=== PATIENT | female | born 1995 | race Caucasian/White ===

== ENCOUNTER 2017-08-07 19:35 | Emergency (ER) | payer OTHER ==
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
[2017-08-07] MEDS ORDERED: Rocephin 1000 MG INJ IM ONE (20:54)
[2017-08-07 21:06] LABS: Bacteria Rare; Clue Cells None Seen
[2017-08-07 21:07] LABS: Red Blood Cells Rare; Trichomonas None Seen; White Blood Cells Few
[2017-08-07] MEDS ORDERED: Rocephin 1000 MG INJ ONE (21:07)
[2017-08-07] MEDS ORDERED: XYLOCAINE 1% HCL 20 ML MDV ONE (21:08)
[2017-08-07 21:58] VITALS: BP 112/73; PULSE 80; O2SAT 99
[2017-08-09 09:36] LABS: Hepatitis B Surface Ab.Quant <3.50 mIU/mL (0.00-8.49); Hepatitis C Antibody by EIA Non Reactive (Non Reactive)
[2017-08-09 09:37] LABS: Hepatitis B Sur Ag Screen Non Reactive (Non Reactive)
[2017-08-09 13:08] LABS: HIV Antigen/Antibody Combo Non Reactive (Non Reactive)
== END 2017-08-07 21:58 | disposition home or self-care (01) ==
LOC: ED 19:35
DX: Z72.51 High risk heterosexual behavior (principal); N89.8 Other specified noninflammatory disorders of vagina; F17.200 Nicotine dependence, unspecified, uncomplicated
CPT/HCPCS: 36415; 86317; 86592; 86701; 86702; 86803; 87210; 87340; 87389; 87490; 87590; 96372; 99284; J0696

== ENCOUNTER 2024-01-04 02:09 | Observation (INO) | payer MEDICAID ==
[2024-01-04 04:36] VITALS: TEMP 97.7; O2SAT 96
[2024-01-04 05:16] LABS: Amphetamine,Urine NEGATIVE (NEGATIVE); Barbiturate,Urine NEGATIVE (NEGATIVE); Benzodiazepine,Urine NEGATIVE (NEGATIVE); Cocaine,Urine NEGATIVE (NEGATIVE); Methadone,Urine NEGATIVE (NEGATIVE); Opiate,Urine NEGATIVE (NEGATIVE); PCP,Urine NEGATIVE (NEGATIVE); THC,Urine NEGATIVE (NEGATIVE)
[2024-01-04 06:21] LABS: ABO TYPING O; Antibody Screen NEGATIVE (NEGATIVE); RH TYPING POSITIVE
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
[2024-01-04 10:39] VITALS: BP 112/58; PULSE 85; RESP 16
== END 2024-01-04 10:43 | disposition home or self-care (01) ==
LOC: OB 02:09
PROVIDERS: ADMIT Obstetrics & Gynecology; ATTEND Obstetrics & Gynecology
DX: Z34.83 Encounter for supervision of other normal pregnancy, third trimester (principal); Z3A.34 34 weeks gestation of pregnancy
CPT/HCPCS: 36415; 76805; 80307; 86850; 86900; 86901; G0378; G0379

== ENCOUNTER 2025-05-07 17:06 | Inpatient (IN) | payer OTHER ==
[2025-05-07] MEDS ORDERED: Zofran 4 MG/2 ML VIAL IV PRN (17:26)
[2025-05-07] MEDS ORDERED: Lactated Ringers 1,000 ML IV SCH (17:30)
[2025-05-07 17:52] LABS: BASOPHIL % 0.1 % (0.1-1.2); Basophil (Absolute #) 0.01 x10^3/uL (0.01-0.08); Eosinophil (Absolute #) 0.04 x10^3/uL (0.04-0.36); Hematocrit 33.7 % (34.1-44.9); Hemoglobin 10.8 g/dL (11.2-15.7); IMMATURE GRAN # 0.03 x10^3u/L (0.001-0.031); IMMATURE GRAN % 0.4 % (0.001-0.429); Lymphocyte (Absolute #) 0.97 x10^3/uL (1.18-3.74); Mean Corpuscular Hemoglobin 28.7 pg (25.6-32.2); Mean Corpuscular Hgb Concent. 32.0 g/dL (32.2-35.5); Monocyte (Absolute #) 0.74 x10^3/uL (0.24-0.86); NUCLEATED RBC # 0.00 x10^3u/L (0.00-0.012); NUCLEATED RBC % 0.0 % (0.00-0.2); Platelet Count 162 x10^3/uL (182-369); Red Blood Count 3.76 x10^6/uL (3.93-5.22); White Blood Count 8.6 x10^3/uL (3.98-10.04)
[2025-05-07] MEDS: FENTANYL 2 MCG-BUPIV 0.125%-NS 250 ML Epidur 250 ML EPIDURAL SCH (18:06)
[2025-05-07] MEDS: PITOCIN 30 UNITS/ LR 500 ML 30 UNITS/500 ML PLAST..BAG IV SCH (18:07)
[2025-05-07] MEDS: Lactated Ringers 1,000 ML IV ONE (18:07)
[2025-05-07 18:18] LABS: AMNISURE TEST RESULTS POSITIVE (NEGATIVE)
[2025-05-07] MEDS ORDERED: XYLOCAINE 1% HCL 20 ML MDV ONE (18:19)
[2025-05-07 18:20] LABS: Hematocrit 33.4 % (34.1-44.9); Hemoglobin 10.7 g/dL (11.2-15.7); Mean Corpuscular Hemoglobin 28.5 pg (25.6-32.2); Mean Corpuscular Hgb Concent. 32.0 g/dL (32.2-35.5); Platelet Count 156 x10^3/uL (182-369); Red Blood Count 3.75 x10^6/uL (3.93-5.22); White Blood Count 8.6 x10^3/uL (3.98-10.04)
[2025-05-07] MEDS ORDERED: Dermoplast Spray ONE (18:37)
[2025-05-07] MEDS ORDERED: TUCKS TP ONE (18:37)
[2025-05-07 18:39] LABS: ABO TYPING O; RH TYPING POSITIVE
[2025-05-07] MEDS ORDERED: Mylicon 80MG PO PRN (18:40)
[2025-05-07] MEDS: Dermoplast Spray TP PRN (18:44)
[2025-05-07] MEDS: TUCKS TP PRN (18:46)
[2025-05-07] MEDS: TYLENOL EXTRA STRENGTH 500 MG PO PRN (19:01)
[2025-05-07] MEDS: MOTRIN 400 MG PO PRN (20:23)
[2025-05-07 21:27] LABS: Amphetamine,Urine NEGATIVE (NEGATIVE); Barbiturate,Urine NEGATIVE (NEGATIVE); Benzodiazepine,Urine NEGATIVE (NEGATIVE); Cocaine,Urine NEGATIVE (NEGATIVE); Methadone,Urine NEGATIVE (NEGATIVE); Opiate,Urine NEGATIVE (NEGATIVE); PCP,Urine NEGATIVE (NEGATIVE); THC,Urine NEGATIVE (NEGATIVE)
[2025-05-08] MEDS: Docusate Sodium 100 MG PO SCH (00:15)
[2025-05-08] MEDS: LANSINOH 40 GM TOP PRN (00:18)
[2025-05-08 05:06] LABS: BASOPHIL % 0.0 % (0.1-1.2); Basophil (Absolute #) 0 x10^3/uL (0.01-0.08); Eosinophil (Absolute #) 0.03 x10^3/uL (0.04-0.36); Hematocrit 28.7 % (34.1-44.9); Hemoglobin 9.1 g/dL (11.2-15.7); IMMATURE GRAN # 0.02 x10^3u/L (0.001-0.031); IMMATURE GRAN % 0.3 % (0.001-0.429); Lymphocyte (Absolute #) 1.10 x10^3/uL (1.18-3.74); Mean Corpuscular Hemoglobin 28.7 pg (25.6-32.2); Mean Corpuscular Hgb Concent. 31.7 g/dL (32.2-35.5); Monocyte (Absolute #) 0.76 x10^3/uL (0.24-0.86); NUCLEATED RBC # 0.00 x10^3u/L (0.00-0.012); NUCLEATED RBC % 0.0 % (0.00-0.2); Platelet Count 143 x10^3/uL (182-369); Red Blood Count 3.17 x10^6/uL (3.93-5.22); White Blood Count 6.6 x10^3/uL (3.98-10.04)
--- NOTE | 2025-05-08 07:56 | PCM.DS ---
Discharge Summary Date of Admission: 05/07/25 17:06 Admitting Physician: MARLY PRESTON DO Primary Care Provider: BRENNAN YOUNG Allergies Allergies No Known Drug Allergies Allergy (Unverified 06/07/14 06:00) Hospital Summary - Vitals & Intake/Output Vital Signs: Vital Signs Temperature 98.0 F 05/08/25 00:38 Pulse Rate 82 05/08/25 00:38 Respiratory Rate 18 05/08/25 00:38 Blood Pressure 108/60 05/08/25 00:38 O2 Sat by Pulse Oximetry 97 05/08/25 00:38 Intake & Output: Intake & Output 05/05/25 05/06/25 05/07/25 05/08/25 11:59 11:59 11:59 11:59 Output Total 100 Balance -100 Weight 91.626 kg - Lab Result Diagrams: 05/08/25 05:00 Lab Results-Last 24 Hrs: Lab Results-Last 24 Hours 05/07/25 05/07/25 05/07/25 Range/Units 17:39 17:39 17:45 WBC 8.6 (3.98-10.04) x10^3/uL RBC 3.76 L (3.93-5.22) x10^6/uL Hgb 10.8 L (11.2-15.7) g/dL Hct 33.7 L (34.1-44.9) % MCV 89.6 (79.4-94.8) fL MCH 28.7 (25.6-32.2) pg MCHC 32.0 L (32.2-35.5) g/dL RDW 13.6 (11.7-14.4) % Plt Count 162 L (182-369) x10^3/uL MPV 11.5 (9.4-12.3) fL Gran % 79.1 H (34.0-71.1) % Immature Gran % (Auto) 0.4 (0.001-0.429) % Nucleat RBC Rel Count 0.0 (0.00-0.2) % Eos # (Auto) 0.04 (0.04-0.36) x10^3/uL Immature Gran # (Auto) 0.03 (0.001-0.031) x10^3u/L Absolute Lymphs (auto) 0.97 L (1.18-3.74) x10^3/uL Absolute Monos (auto) 0.74 (0.24-0.86) x10^3/uL Absolute Nucleated RBC 0.00 (0.00-0.012) x10^3u/L Lymphocytes % 11.3 L (19.3-51.7) % Monocytes % 8.6 (4.7-12.5) % Eosinophils % 0.5 L (0.7-5.8) % Basophils % 0.1 (0.1-1.2) % Absolute Granulocytes 6.77 H (1.56-6.13) x10^3/uL Basophils # 0.01 (0.01-0.08) x10^3/uL Amnio Swab Test POSITIVE A (NEGATIVE) Urine Opiates Level (NEGATIVE) Ur Methadone (NEGATIVE) Urine Barbiturates (NEGATIVE) Ur Phencyclidine (PCP) (NEGATIVE) Urine Amphetamine (NEGATIVE) U Benzodiazepine Level (NEGATIVE) Urine Cocaine (NEGATIVE) Urine Marijuana (THC) (NEGATIVE) ABO Group O Rh Factor POSITIVE Antibody Screen NEGATIVE (NEGATIVE) 05/07/25 05/07/25 05/08/25 Range/Units 18:00 20:40 05:00 WBC 8.6 6.6 (3.98-10.04) x10^3/uL RBC 3.75 L 3.17 L (3.93-5.22) x10^6/uL Hgb 10.7 L 9.1 L (11.2-15.7) g/dL Hct 33.4 L 28.7 L (34.1-44.9) % MCV 89.1 90.5 (79.4-94.8) fL MCH 28.5 28.7 (25.6-32.2) pg MCHC 32.0 L 31.7 L (32.2-35.5) g/dL RDW 13.5 13.7 (11.7-14.4) % Plt Count 156 L 143 L (182-369) x10^3/uL MPV 11.9 11.6 (9.4-12.3) fL Gran % 70.8 (34.0-71.1) % Immature Gran % (Auto) 0.3 (0.001-0.429) % Nucleat RBC Rel Count 0.0 (0.00-0.2) % Eos # (Auto) 0.03 L (0.04-0.36) x10^3/uL Immature Gran # (Auto) 0.02 (0.001-0.031) x10^3u/L Absolute Lymphs (auto) 1.10 L (1.18-3.74) x10^3/uL Absolute Monos (auto) 0.76 (0.24-0.86) x10^3/uL Absolute Nucleated RBC 0.00 (0.00-0.012) x10^3u/L Lymphocytes % 16.8 L (19.3-51.7) % Monocytes % 11.6 (4.7-12.5) % Eosinophils % 0.5 L (0.7-5.8) % Basophils % 0.0 L (0.1-1.2) % Absolute Granulocytes 4.64 (1.56-6.13) x10^3/uL Basophils # 0 L (0.01-0.08) x10^3/uL Amnio Swab Test (NEGATIVE) Urine Opiates Level NEGATIVE (NEGATIVE) Ur Methadone NEGATIVE (NEGATIVE) Urine Barbiturates NEGATIVE (NEGATIVE) Ur Phencyclidine (PCP) NEGATIVE (NEGATIVE) Urine Amphetamine NEGATIVE (NEGATIVE) U Benzodiazepine Level NEGATIVE (NEGATIVE) Urine Cocaine NEGATIVE (NEGATIVE) Urine Marijuana (THC) NEGATIVE (NEGATIVE) ABO Group Rh Factor Antibody Screen (NEGATIVE) Final Diagnosis/Problem List - Final Discharge Diagnosis/Problem (1) Vaginal delivery Current Visit: Yes Status: Acute Code(s): O80 - ENCOUNTER FOR FULL-TERM UNCOMPLICATED DELIVERY - Discharge Disposition: Home, Self-Care Condition: Stable Prescriptions: No Action Pnv 119/Iron Fum/Folic Acid [ 19 Tablet] 1 tab PO DAILY Follow up with: BRENNAN YOUNG [Primary Care Provider, INTERNAL MEDICINE]
--- NOTE | 2025-05-08 07:56 | PCM.NOTE ---
Date and Time: 05/08/25 0755 Subjective Assessment: ppd 1 sp pt resting in bed and doing well without complaints vss afebrile abd; soft uterus; firm lochia; mild hgb; 9.1 a/p sp ppd 1 dc home tomorrow should fu office in 3 wks Objective Data Vital Signs: Vital Signs - 24 hr Temp Pulse Resp BP BP Pulse Ox 05/08/25 00:38 98.0 F 82 18 108/60 97 05/07/25 20:30 65 18 112/58 05/07/25 20:27 98.2 F 65 18 115/58 98 05/07/25 20:15 74 18 108/58 05/07/25 20:00 98.2 F 79 18 104/59 05/07/25 19:45 85 18 104/59 05/07/25 19:30 74 18 107/58 98 05/07/25 19:15 80 18 118/58 100 05/07/25 19:00 98.0 F 78 18 122/62 100 05/07/25 18:45 98.9 F 80 20 116/57 100 05/07/25 18:20 98.1 F 20 05/07/25 18:00 98.1 F 89 20 100/56 97 05/07/25 17:36 98.1 F 100 H 20 122/73 05/07/25 17:30 98.1 F 100 H 20 122/73 97 05/07/25 17:15 98.1 F 100 H 18 122/73 97 Pain Assessment - Last Documented Pain Intensity [Lower Anterior 5 ] Pain Intensity 3 Pain Scale Used 0-10 Pain Scale Intake and Output: Intake & Output 05/05/25 05/06/25 05/07/25 05/08/25 11:59 11:59 11:59 11:59 Output Total 100 Balance -100 Weight 91.626 kg Lab Results: Lab Results-Last 24 Hours 05/07/25 05/07/25 05/07/25 Range/Units 17:39 17:39 17:45 WBC 8.6 (3.98-10.04) x10^3/uL RBC 3.76 L (3.93-5.22) x10^6/uL Hgb 10.8 L (11.2-15.7) g/dL Hct 33.7 L (34.1-44.9) % MCV 89.6 (79.4-94.8) fL MCH 28.7 (25.6-32.2) pg MCHC 32.0 L (32.2-35.5) g/dL RDW 13.6 (11.7-14.4) % Plt Count 162 L (182-369) x10^3/uL MPV 11.5 (9.4-12.3) fL Gran % 79.1 H (34.0-71.1) % Immature Gran % (Auto) 0.4 (0.001-0.429) % Nucleat RBC Rel Count 0.0 (0.00-0.2) % Eos # (Auto) 0.04 (0.04-0.36) x10^3/uL Immature Gran # (Auto) 0.03 (0.001-0.031) x10^3u/L Absolute Lymphs (auto) 0.97 L (1.18-3.74) x10^3/uL Absolute Monos (auto) 0.74 (0.24-0.86) x10^3/uL Absolute Nucleated RBC 0.00 (0.00-0.012) x10^3u/L Lymphocytes % 11.3 L (19.3-51.7) % Monocytes % 8.6 (4.7-12.5) % Eosinophils % 0.5 L (0.7-5.8) % Basophils % 0.1 (0.1-1.2) % Absolute Granulocytes 6.77 H (1.56-6.13) x10^3/uL Basophils # 0.01 (0.01-0.08) x10^3/uL Amnio Swab Test POSITIVE A (NEGATIVE) Urine Opiates Level (NEGATIVE) Ur Methadone (NEGATIVE) Urine Barbiturates (NEGATIVE) Ur Phencyclidine (PCP) (NEGATIVE) Urine Amphetamine (NEGATIVE) U Benzodiazepine Level (NEGATIVE) Urine Cocaine (NEGATIVE) Urine Marijuana (THC) (NEGATIVE) ABO Group O Rh Factor POSITIVE Antibody Screen NEGATIVE (NEGATIVE) 05/07/25 05/07/25 05/08/25 Range/Units 18:00 20:40 05:00 WBC 8.6 6.6 (3.98-10.04) x10^3/uL RBC 3.75 L 3.17 L (3.93-5.22) x10^6/uL Hgb 10.7 L 9.1 L (11.2-15.7) g/dL Hct 33.4 L 28.7 L (34.1-44.9) % MCV 89.1 90.5 (79.4-94.8) fL MCH 28.5 28.7 (25.6-32.2) pg MCHC 32.0 L 31.7 L (32.2-35.5) g/dL RDW 13.5 13.7 (11.7-14.4) % Plt Count 156 L 143 L (182-369) x10^3/uL MPV 11.9 11.6 (9.4-12.3) fL Gran % 70.8 (34.0-71.1) % Immature Gran % (Auto) 0.3 (0.001-0.429) % Nucleat RBC Rel Count 0.0 (0.00-0.2) % Eos # (Auto) 0.03 L (0.04-0.36) x10^3/uL Immature Gran # (Auto) 0.02 (0.001-0.031) x10^3u/L Absolute Lymphs (auto) 1.10 L (1.18-3.74) x10^3/uL Absolute Monos (auto) 0.76 (0.24-0.86) x10^3/uL Absolute Nucleated RBC 0.00 (0.00-0.012) x10^3u/L Lymphocytes % 16.8 L (19.3-51.7) % Monocytes % 11.6 (4.7-12.5) % Eosinophils % 0.5 L (0.7-5.8) % Basophils % 0.0 L (0.1-1.2) % Absolute Granulocytes 4.64 (1.56-6.13) x10^3/uL Basophils # 0 L (0.01-0.08) x10^3/uL Amnio Swab Test (NEGATIVE) Urine Opiates Level NEGATIVE (NEGATIVE) Ur Methadone NEGATIVE (NEGATIVE) Urine Barbiturates NEGATIVE (NEGATIVE) Ur Phencyclidine (PCP) NEGATIVE (NEGATIVE) Urine Amphetamine NEGATIVE (NEGATIVE) U Benzodiazepine Level NEGATIVE (NEGATIVE) Urine Cocaine NEGATIVE (NEGATIVE) Urine Marijuana (THC) NEGATIVE (NEGATIVE) ABO Group Rh Factor Antibody Screen (NEGATIVE) Medications: Medications Generic Name Dose Route Start Last Admin Trade Name Freq PRN Reason Stop Dose Admin Acetaminophen 500 - 1,000 mg 05/07/25 18:40 05/08/25 00:18 Acetaminophen 500 Mg Tablet PO 06/06/25 18:39 1,000 mg Q4H PRN PRN Administration MILD PAIN Benzocaine 0 gm 05/07/25 18:40 05/07/25 18:44 Benzocaine/Lanolin/Aloe Vera 85 Gm Can TP 06/06/25 18:39 85 gm UD PRN Administration PAIN Docusate Sodium 100 mg 05/07/25 22:00 05/08/25 00:15 Docusate Sodium 100 Mg Capsule PO 06/06/25 21:59 Not Given BID BAKARI Emollient Ointment 0 gm 05/07/25 18:40 05/08/25 00:18 Lansinoh 40 Gm Tube TOP 06/06/25 18:39 40 gm PRN PRN Administration PAIN Oxytocin/Lactated Ringer's 30 units in 500 mls @ 5 mls/hr 05/07/25 17:30 05/07/25 18:07 Pitocin 30 Units/ Lr 500 Ml IV 06/06/25 17:29 5 mls/hr .Q24H BAKARI Administration Lactated Ringer's 1,000 mls @ 125 mls/hr 05/07/25 17:30 Lactated Ringers IV 06/06/25 17:29 .Q8H BAKARI FENTANYL/BUPIVACAINE/NS/PF 250 mls @ 0 mls/hr 05/07/25 18:00 05/07/25 18:06 Fentanyl 2 Mcg-Bupiv 0.125%-Ns 250 Ml Epidur EPIDURAL 06/06/25 17:59 200 mls/hr .Q0M BAKARI Administration Protocol Titrate Ibuprofen 800 mg 05/07/25 18:40 05/08/25 07:42 Ibuprofen 400 Mg Tablet PO 06/06/25 18:39 800 mg Q6H PRN PRN Administration MODERATE PAIN Ondansetron HCl 4 mg 05/07/25 17:26 Ondansetron Hcl 4 Mg/2 Ml Vial IV 06/06/25 17:25 Q4H PRN PRN NAUSEA/VOMITING Polysaccharide Iron Complex 150 mg 05/08/25 10:00 Iron Polysaccharides Complex 150 Mg Capsule PO 06/07/25 09:59 DAILY BAKARI Simethicone 80 mg 05/07/25 18:40 Simethicone 80 Mg Tab.Chew PO 06/06/25 18:39 QID PRN PRN INDIGESTION Milagro Michelle 1 pad 05/07/25 18:40 05/07/25 18:46 Milagro Michelle 1 Pad Med..Pad TP 06/06/25 18:39 1 pad PRN PRN Administration ITCHING Discontinued Medications Generic Name Dose Route Start Last Admin Trade Name Freq PRN Reason Stop Dose Admin Benzocaine Confirm 05/07/25 18:37 Benzocaine/Lanolin/Aloe Vera 85 Gm Can Administered 05/07/25 18:38 Dose 85 gm .ROUTE .STK-MED ONE Lactated Ringer's 1,000 mls @ 999 mls/hr 05/07/25 17:58 05/07/25 18:07 Lactated Ringers IV 05/07/25 18:58 999 mls/hr .Q1H1M ONE Administration Lidocaine HCl Confirm 05/07/25 18:19 Lidocaine Hcl 1% 20 Ml Mdv 20 Ml Ml Administered 05/07/25 18:20 Dose 1 ml .ROUTE .STK-MED ONE Milagro Michelle Confirm 05/07/25 18:37 Milagro Michelle 1 Pad Med..Pad Administered 05/07/25 18:38 Dose 1 pad TP .STK-MED ONE Assessment/Plan (1) Vaginal delivery Current Visit: Yes Status: Acute Code(s): O80 - ENCOUNTER FOR FULL-TERM UNCOMPLICATED DELIVERY
--- NOTE | 2025-05-08 08:54 | PCM.HP ---
History of Present Illness - Chief Complaint Chief Complaint: Labor History of Present Illness: is a 29 year old female IUP 38 WKS WITH HX OF PREVIOUS 2 VAGINAL DELIVERY PRESENTED WITH SROM AT 1600 WITH NO VAGINAL BLEEDING AND STATES GOOD MOVEMENT. STATES NO MEDICAL ISSUE WITH CURRENT AND SEES PROVIDER IN [facility] CARE - Review of Systems Ears, Nose, & Throat: No Symptoms Respiratory: No Symptoms Cardiac: No Symptoms Genitourinary Symptoms: Other (4-5/100/-2) Musculoskeletal: No Symptoms Neurological: No Symptoms Psychological: No Symptoms Additional Findings: CONTRACTIONS EVERY 3 MINUTES Medications & Allergies Home Medications: Home Medication List Pnv 119/Iron Fum/Folic Acid [ 19 Tablet] 1 tab PO DAILY 01/04/24 [History Confirmed 01/04/24] Allergies/Adverse Reactions: Allergies Allergy/AdvReac Type Severity Reaction Status Date / Time No Known Drug Allergies Allergy Unverified 06/07/14 06:00 - Past Medical History Past Medical History: No Neurological History: No Pertinent History ENT History: No Pertinent History Cardiac History: No Pertinent History Respiratory History: No Pertinent History Endocrine Medical History: No Pertinent History Musculoskelatal History: Fibromyalgia, Fractures GI Medical History: No Pertinent History History: No Pertinent History Pyscho-Social History: No Pertinent History Reproductive Disorders: No Pertinent History Comment: hx of eye socket surgery d/t surgery - Female History Expected Date of Delivery: 05/23/25 - Past Surgical History Past Surgical History: No Neuro Surgical History: No Pertinent History Cardiac History: No Pertinent History Respiratory Surgery: No Pertinent History GI Surgical History: No Pertinent History Genitourinary Surgical Hx: No Pertinent History Musculskeletal Surgical Hx: No Pertinent History Female Surgical History: No Pertinent History Other Surgical History: eye socket broke - Social History Smoking Status: Former smoker Exposure to second hand smoke: No Alcohol: None Drug Use: none - Social Determinants of Health Will the patient participate in the screening: Yes Do you worry about a steady place to live?: No Do you have any problems with any of the following?: No known problems In the past 12 months,have you had to go without utilities?: No Have you or anyone in your house had to go without enough: No Transportation Issues: No Has anyone in your support network made you feel unsafe?: No Does the patient want assistance with any of the above?: No - Physical Exam Vital Signs: Vital Signs - 24 hr Temp Pulse Resp BP BP Pulse Ox 05/08/25 08:27 98.0 F 70 20 117/67 05/08/25 00:38 98.0 F 82 18 108/60 97 05/07/25 20:30 65 18 112/58 05/07/25 20:27 98.2 F 65 18 115/58 98 05/07/25 20:15 74 18 108/58 05/07/25 20:00 98.2 F 79 18 104/59 05/07/25 19:45 85 18 104/59 05/07/25 19:30 74 18 107/58 98 05/07/25 19:15 80 18 118/58 100 05/07/25 19:00 98.0 F 78 18 122/62 100 05/07/25 18:45 98.9 F 80 20 116/57 100 05/07/25 18:20 98.1 F 20 05/07/25 18:00 98.1 F 89 20 100/56 97 05/07/25 17:36 98.1 F 100 H 20 122/73 05/07/25 17:30 98.1 F 100 H 20 122/73 97 05/07/25 17:15 98.1 F 100 H 18 122/73 97 Pelvic Exam: other (4-5/100/-2/SROM) Results - Labs Lab/Micro Results: Lab Results-Last 24 Hours 05/07/25 05/07/25 05/07/25 Range/Units 17:39 17:39 17:45 WBC 8.6 (3.98-10.04) x10^3/uL RBC 3.76 L (3.93-5.22) x10^6/uL Hgb 10.8 L (11.2-15.7) g/dL Hct 33.7 L (34.1-44.9) % MCV 89.6 (79.4-94.8) fL MCH 28.7 (25.6-32.2) pg MCHC 32.0 L (32.2-35.5) g/dL RDW 13.6 (11.7-14.4) % Plt Count 162 L (182-369) x10^3/uL MPV 11.5 (9.4-12.3) fL Gran % 79.1 H (34.0-71.1) % Immature Gran % (Auto) 0.4 (0.001-0.429) % Nucleat RBC Rel Count 0.0 (0.00-0.2) % Eos # (Auto) 0.04 (0.04-0.36) x10^3/uL Immature Gran # (Auto) 0.03 (0.001-0.031) x10^3u/L Absolute Lymphs (auto) 0.97 L (1.18-3.74) x10^3/uL Absolute Monos (auto) 0.74 (0.24-0.86) x10^3/uL Absolute Nucleated RBC 0.00 (0.00-0.012) x10^3u/L Lymphocytes % 11.3 L (19.3-51.7) % Monocytes % 8.6 (4.7-12.5) % Eosinophils % 0.5 L (0.7-5.8) % Basophils % 0.1 (0.1-1.2) % Absolute Granulocytes 6.77 H (1.56-6.13) x10^3/uL Basophils # 0.01 (0.01-0.08) x10^3/uL Amnio Swab Test POSITIVE A (NEGATIVE) Urine Opiates Level (NEGATIVE) Ur Methadone (NEGATIVE) Urine Barbiturates (NEGATIVE) Ur Phencyclidine (PCP) (NEGATIVE) Urine Amphetamine (NEGATIVE) U Benzodiazepine Level (NEGATIVE) Urine Cocaine (NEGATIVE) Urine Marijuana (THC) (NEGATIVE) ABO Group O Rh Factor POSITIVE Antibody Screen NEGATIVE (NEGATIVE) 05/07/25 05/07/25 05/08/25 Range/Units 18:00 20:40 05:00 WBC 8.6 6.6 (3.98-10.04) x10^3/uL RBC 3.75 L 3.17 L (3.93-5.22) x10^6/uL Hgb 10.7 L 9.1 L (11.2-15.7) g/dL Hct 33.4 L 28.7 L (34.1-44.9) % MCV 89.1 90.5 (79.4-94.8) fL MCH 28.5 28.7 (25.6-32.2) pg MCHC 32.0 L 31.7 L (32.2-35.5) g/dL RDW 13.5 13.7 (11.7-14.4) % Plt Count 156 L 143 L (182-369) x10^3/uL MPV 11.9 11.6 (9.4-12.3) fL Gran % 70.8 (34.0-71.1) % Immature Gran % (Auto) 0.3 (0.001-0.429) % Nucleat RBC Rel Count 0.0 (0.00-0.2) % Eos # (Auto) 0.03 L (0.04-0.36) x10^3/uL Immature Gran # (Auto) 0.02 (0.001-0.031) x10^3u/L Absolute Lymphs (auto) 1.10 L (1.18-3.74) x10^3/uL Absolute Monos (auto) 0.76 (0.24-0.86) x10^3/uL Absolute Nucleated RBC 0.00 (0.00-0.012) x10^3u/L Lymphocytes % 16.8 L (19.3-51.7) % Monocytes % 11.6 (4.7-12.5) % Eosinophils % 0.5 L (0.7-5.8) % Basophils % 0.0 L (0.1-1.2) % Absolute Granulocytes 4.64 (1.56-6.13) x10^3/uL Basophils # 0 L (0.01-0.08) x10^3/uL Amnio Swab Test (NEGATIVE) Urine Opiates Level NEGATIVE (NEGATIVE) Ur Methadone NEGATIVE (NEGATIVE) Urine Barbiturates NEGATIVE (NEGATIVE) Ur Phencyclidine (PCP) NEGATIVE (NEGATIVE) Urine Amphetamine NEGATIVE (NEGATIVE) U Benzodiazepine Level NEGATIVE (NEGATIVE) Urine Cocaine NEGATIVE (NEGATIVE) Urine Marijuana (THC) NEGATIVE (NEGATIVE) ABO Group Rh Factor Antibody Screen (NEGATIVE) Assessment/Plan (1) Vaginal delivery Current Visit: Yes Status: Acute Code(s): O80 - ENCOUNTER FOR FULL-TERM UNCOMPLICATED DELIVERY (2) Labor abnormal Current Visit: Yes Status: Acute Code(s): O62.9 - ABNORMALITY OF FORCES OF LAB[employer], UNSPECIFIED
--- NOTE | 2025-05-08 08:57 | PCM.DS ---
Discharge Summary Date of Admission: 05/07/25 17:06 Admitting Physician: MARLY PRESTON DO Primary Care Provider: BRENNAN YOUNG Allergies Allergies No Known Drug Allergies Allergy (Unverified 06/07/14 06:00) Hospital Summary - Hospital Course Hospital Course: PT ADMITTED ON MAY 07 AT 38 WKS GESTATION WITH HX OF PREVIOUS 2 VAGINAL DELIVERY PRESENTED IN LABOR ODELL EVERY 3 MINUTES WITH SROM AT 1600. DENIES VAGINAL BLEEDING AND STATES GOOD MOVEMENT. PT DID NOT HAVE TIME RECEIVING EPIDURAL AND SUBSEQUENTLY DELIVERED LIVE BABY BOY WITHOUT COMPLICATION WITH 2ND DEGREE TEAR REPAIRED WITH 2-0 CHROMIC SUTURE. DURING PERIOD DID WELL WITH STABLE VITAL SIGNS AND HGB STABLE AT 9.1. PT AT THIS TIME STABLE FOR DISCHARGE ON MAY 09 AND WAS ADVISED TO FU IN OFFICE IN 3WKS. ALL QUESTIONS ANSWERED TO HER SATISFACTION AND AT THIS TIME STABLE FOR DISCHARGE. - Vitals & Intake/Output Vital Signs: Vital Signs Temperature 98.0 F 05/08/25 08:27 Pulse Rate 70 05/08/25 08:27 Respiratory Rate 20 05/08/25 08:27 Blood Pressure 117/67 05/08/25 08:27 O2 Sat by Pulse Oximetry 97 05/08/25 00:38 Intake & Output: Intake & Output 05/05/25 05/06/25 05/07/25 05/08/25 11:59 11:59 11:59 11:59 Output Total 100 Balance -100 Weight 91.626 kg - Lab Result Diagrams: 05/08/25 05:00 Lab Results-Last 24 Hrs: Lab Results-Last 24 Hours 05/07/25 05/07/25 05/07/25 Range/Units 17:39 17:39 17:45 WBC 8.6 (3.98-10.04) x10^3/uL RBC 3.76 L (3.93-5.22) x10^6/uL Hgb 10.8 L (11.2-15.7) g/dL Hct 33.7 L (34.1-44.9) % MCV 89.6 (79.4-94.8) fL MCH 28.7 (25.6-32.2) pg MCHC 32.0 L (32.2-35.5) g/dL RDW 13.6 (11.7-14.4) % Plt Count 162 L (182-369) x10^3/uL MPV 11.5 (9.4-12.3) fL Gran % 79.1 H (34.0-71.1) % Immature Gran % (Auto) 0.4 (0.001-0.429) % Nucleat RBC Rel Count 0.0 (0.00-0.2) % Eos # (Auto) 0.04 (0.04-0.36) x10^3/uL Immature Gran # (Auto) 0.03 (0.001-0.031) x10^3u/L Absolute Lymphs (auto) 0.97 L (1.18-3.74) x10^3/uL Absolute Monos (auto) 0.74 (0.24-0.86) x10^3/uL Absolute Nucleated RBC 0.00 (0.00-0.012) x10^3u/L Lymphocytes % 11.3 L (19.3-51.7) % Monocytes % 8.6 (4.7-12.5) % Eosinophils % 0.5 L (0.7-5.8) % Basophils % 0.1 (0.1-1.2) % Absolute Granulocytes 6.77 H (1.56-6.13) x10^3/uL Basophils # 0.01 (0.01-0.08) x10^3/uL Amnio Swab Test POSITIVE A (NEGATIVE) Urine Opiates Level (NEGATIVE) Ur Methadone (NEGATIVE) Urine Barbiturates (NEGATIVE) Ur Phencyclidine (PCP) (NEGATIVE) Urine Amphetamine (NEGATIVE) U Benzodiazepine Level (NEGATIVE) Urine Cocaine (NEGATIVE) Urine Marijuana (THC) (NEGATIVE) ABO Group O Rh Factor POSITIVE Antibody Screen NEGATIVE (NEGATIVE) 05/07/25 05/07/25 05/08/25 Range/Units 18:00 20:40 05:00 WBC 8.6 6.6 (3.98-10.04) x10^3/uL RBC 3.75 L 3.17 L (3.93-5.22) x10^6/uL Hgb 10.7 L 9.1 L (11.2-15.7) g/dL Hct 33.4 L 28.7 L (34.1-44.9) % MCV 89.1 90.5 (79.4-94.8) fL MCH 28.5 28.7 (25.6-32.2) pg MCHC 32.0 L 31.7 L (32.2-35.5) g/dL RDW 13.5 13.7 (11.7-14.4) % Plt Count 156 L 143 L (182-369) x10^3/uL MPV 11.9 11.6 (9.4-12.3) fL Gran % 70.8 (34.0-71.1) % Immature Gran % (Auto) 0.3 (0.001-0.429) % Nucleat RBC Rel Count 0.0 (0.00-0.2) % Eos # (Auto) 0.03 L (0.04-0.36) x10^3/uL Immature Gran # (Auto) 0.02 (0.001-0.031) x10^3u/L Absolute Lymphs (auto) 1.10 L (1.18-3.74) x10^3/uL Absolute Monos (auto) 0.76 (0.24-0.86) x10^3/uL Absolute Nucleated RBC 0.00 (0.00-0.012) x10^3u/L Lymphocytes % 16.8 L (19.3-51.7) % Monocytes % 11.6 (4.7-12.5) % Eosinophils % 0.5 L (0.7-5.8) % Basophils % 0.0 L (0.1-1.2) % Absolute Granulocytes 4.64 (1.56-6.13) x10^3/uL Basophils # 0 L (0.01-0.08) x10^3/uL Amnio Swab Test (NEGATIVE) Urine Opiates Level NEGATIVE (NEGATIVE) Ur Methadone NEGATIVE (NEGATIVE) Urine Barbiturates NEGATIVE (NEGATIVE) Ur Phencyclidine (PCP) NEGATIVE (NEGATIVE) Urine Amphetamine NEGATIVE (NEGATIVE) U Benzodiazepine Level NEGATIVE (NEGATIVE) Urine Cocaine NEGATIVE (NEGATIVE) Urine Marijuana (THC) NEGATIVE (NEGATIVE) ABO Group Rh Factor Antibody Screen (NEGATIVE) Final Diagnosis/Problem List - Final Discharge Diagnosis/Problem (1) Vaginal delivery Current Visit: Yes Status: Acute Code(s): O80 - ENCOUNTER FOR FULL-TERM UNCOMPLICATED DELIVERY (2) Labor abnormal Current Visit: Yes Status: Acute Code(s): O62.9 - ABNORMALITY OF [employer]CES OF LAB[employer], UNSPECIFIED - Discharge Disposition: Home, Self-Care Condition: Stable Prescriptions: No Action Pnv 119/Iron Fum/Folic Acid [ 19 Tablet] 1 tab PO DAILY Follow up with: BRENNAN YOUNG [Primary Care Provider, INTERNAL MEDICINE] MARLY PRESTON DO [ACTIVE STAFF, OBSTETRICS-GYNECOLOGY] - 3 weeks
[2025-05-08] MEDS: FERREX 150 PO SCH (09:33)
[2025-05-09 08:55] VITALS: BP 109/59; PULSE 69; RESP 18; TEMP 98.3; O2SAT 98
== END 2025-05-09 14:00 | disposition home or self-care (01) | DRG 807 ==
LOC: OB 17:06 → OBSVTOIN 17:06
PROVIDERS: ADMIT Obstetrics & Gynecology; ATTEND Obstetrics & Gynecology
PROC: 10E0XZZ Delivery of Products of Conception, External Approach (ICD-10-PCS; principal; 2025-05-07)
PROC: 0KQM0ZZ Repair Perineum Muscle, Open Approach (ICD-10-PCS; 2025-05-07)
DX: O70.1 Second degree perineal laceration during delivery (principal); Z37.0 Single live birth; O62.9 Abnormality of forces of labor, unspecified; Z3A.38 38 weeks gestation of pregnancy